=== PATIENT | female | born 1990 | race Caucasian/White ===

== ENCOUNTER 2018-12-11 13:44 | Emergency (ER) | payer MEDICAID ==
[~2018-12-11] VITALS: Ht 157.5 cm; Wt 44.5 kg
[~2018-12-11 13:44] MED LIST: NEOM10SO7 EACH EAR
[2018-12-11 13:49] VITALS: BP_SYST 114
[2018-12-11 14:50] VITALS: BP_SYST 123
== END 2018-12-11 14:50 | disposition home or self-care (01) ==
LOC: SED 13:44
DX: S05.01XA Injury of conjunctiva and corneal abrasion without foreign body, right eye, initial encounter (principal); R03.0 Elevated blood-pressure reading, without diagnosis of hypertension; X58.XXXA Exposure to other specified factors, initial encounter; Y93.89 Activity, other specified; Y92.89 Other specified places as the place of occurrence of the external cause; Y99.8 Other external cause status
CPT/HCPCS: 81025; 99283

== ENCOUNTER 2019-02-10 09:37 | Emergency (ER) | payer BC, MEDICAID ==
[~2019-02-10] VITALS: Ht 157.5 cm; Wt 41.7 kg
--- NOTE | 2019-02-10 09:37 | NUR ---
BROUGHT BACK TO BED #2 AND TRIAGED. REPORT GIVEN TO JUANITA
[2019-02-10 09:40] VITALS: BP_SYST 110
--- NOTE | 2019-02-10 09:40 | NUR ---
Patient presented to ER with abdominal cramping, headache, cough, congestion x2 days. Patient A&Ox4, afebrile, ambulatory to ER, skin pink, head ache pain 4/10, nausea, denies V/D at present time, nasal congestion, cough present. Patient 18 weeks .
--- NOTE | 2019-02-10 09:40 | NUR ---
Note undone in EDM - 02/10/19 at 1659 by LOUISAEDTD Patient given written and verbal discharge instructions and verbalizes understanding. ER discussed with patient the results and treatment provided. Patient in stable condition. ID arm band removed. IV catheter removed intact and dressing applied, no active bleeding. Rx of Azithromycin given. Patient educated on pain management and to follow up with PMD. Pain Scale 2/10 tolerable for patient. Opportunity for questions provided and answered. Medication side effect fact sheet provided.
--- NOTE | 2019-02-10 09:45 | NUR ---
DIEGO Abarca at bedside examining patient.
[2019-02-10] MEDS ORDERED: NACL 0.9% 1,000 ML IV ONE (10:15)
[2019-02-10] MEDS ORDERED: ACETAMINOPHEN 500 MG TABLET PO ONE (10:15)
[2019-02-10] MEDS ORDERED: ONDANSETRON HCL 4 MG/2 ML VIAL IVP ONE (10:15)
[2019-02-10] MEDS ORDERED: ONDANSETRON 4 MG ODT TAB PO ONE (10:45)
--- NOTE | 2019-02-10 11:20 | NUR ---
Janis MCGEE at bedside assessing heart tones.
[2019-02-10 11:40] VITALS: BP_SYST 110
--- NOTE | 2019-02-10 11:40 | NUR ---
Patient given written and verbal discharge instructions and verbalizes understanding. ER MD discussed with patient the results and treatment provided. Patient in stable condition. ID arm band removed. IV catheter removed intact and dressing applied, no active bleeding. Rx of Azithromycin given. Patient educated on pain management and to follow up with PMD. Pain Scale 2/10 tolerable for patient. Opportunity for questions provided and answered. Medication side effect fact sheet provided.
== END 2019-02-10 11:40 | disposition home or self-care (01) ==
LOC: SED 09:37
DX: O99.282 Endocrine, nutritional and metabolic diseases complicating pregnancy, second trimester (principal); E86.0 Dehydration; O99.512 Diseases of the respiratory system complicating pregnancy, second trimester; J06.9 Acute upper respiratory infection, unspecified; O21.8 Other vomiting complicating pregnancy; O26.892 Other specified pregnancy related conditions, second trimester; R51 Headache; Z3A.18 18 weeks gestation of pregnancy
CPT/HCPCS: 96360; 99283; J2405; J7030; Q0162; 99284

== ENCOUNTER 2019-05-01 13:55 | Observation (INO) | payer BC, MEDICAID | END 2019-05-01 15:00 | disposition home or self-care (01) | LOC: SPU 13:55 | PROVIDERS: ADMIT Specialist; ATTEND Specialist | DX: O62.9 Abnormality of forces of labor, unspecified (principal); Z3A.29 29 weeks gestation of pregnancy | CPT/HCPCS: 36415; 82731; G0378 ==

== ENCOUNTER 2020-01-31 21:44 | Emergency (ER) | payer BC, MEDICAID ==
[~2020-01-31] VITALS: Ht 157.5 cm; Wt 39.0 kg
[2020-01-31 21:55] VITALS: BP_SYST 90
--- NOTE | 2020-01-31 21:55 | NUR ---
Patient to ER bed 1 to gown for evaluation. Side rails up. Report given to COLE.
--- NOTE | 2020-01-31 21:56 | NUR ---
PT AAO AND AMBULATORY C/O PAIN WITH URINATION AND BLOOD IN URINE SINCE YESTERDAY. PT REPORTS WORSENING DISCOMFORT AND ATTEMPTED TO TAKE AZO TO ASSIST WITH SYMPTOMS.
--- NOTE | 2020-01-31 21:58 | NUR ---
ER at bedside examining patient.
[2020-01-31 22:18] LABS: BILIRUBIN,URINE 1+ (NEGATIVE); CLARITY/URINE CLOUDY (CLEAR); COLOR,URINE RED (YELLOW); GLUCOSE,URINE 1+ (NEGATIVE); KETONES,URINE TRACE (NEGATIVE); LEUKOCYTE ESTERASE ,URINE 2+ (NEGATIVE); NITRITE, URINE POSITIVE (NEGATIVE); PROTEIN URINE 3+ (NEGATIVE)
[2020-01-31 22:34] LABS: BLOOD, URINE TRACE (NEGATIVE)
[2020-01-31 22:35] LABS: UROBILINOGEN,URINE >=8 (0.2-1.0)
[2020-01-31 22:37] LABS: BACTERIA,URINE MODERATE /HPF (None Seen); WBC,URINE 50-80 /HPF (0-3)
--- NOTE | 2020-01-31 23:07 | NUR ---
Patient given written and verbal discharge instructions and verbalizes understanding. ER MD discussed with patient the results and treatment provided. Patient in stable condition. ID arm band removed. Rx of Bactrim given. Patient educated on pain management and to follow up with PMD. Opportunity for questions provided and answered. Medication side effect fact sheet provided.
[2020-01-31 23:13] VITALS: BP_SYST 90
[2020-01-31] MEDS ORDERED: SULFAMETHOXAZOLE/TRIMETHOPR DS 1 TABLET PO ONE (23:15)
[2020-01-31] MEDS ORDERED: IBUPROFEN 400 MG TABLET PO ONE (23:15)
[2020-01-31] MEDS ORDERED: SULFAMETHOXAZOLE/TRIMETHOPR DS 1 TABLET ONE (23:20)
[2020-01-31] MEDS ORDERED: IBUPROFEN 400 MG TABLET ONE (23:21)
== END 2020-01-31 23:07 | disposition home or self-care (01) ==
LOC: SED 21:44
DX: N39.0 Urinary tract infection, site not specified (principal)
CPT/HCPCS: 81000-TC; 81025; 87086; 87186-TC; 99283

== ENCOUNTER 2022-07-28 14:41 | Emergency (ER) | payer BC, MEDICAID ==
[~2022-07-28] VITALS: Ht 157.5 cm; Wt 40.4 kg
[2022-07-28 15:20] VITALS: BP_SYST 107
--- NOTE | 2022-07-28 15:25 | NUR ---
Patient triaged and placed in waiting room. VSS and patient appears in no acute distress at this time. Accompanied by , awaiting available bed, and MD notified of need for MSE.
--- NOTE | 2022-07-28 15:27 | NUR ---
ER in triage examining patient.
[2022-07-28 16:14] LABS: BILIRUBIN,URINE NEGATIVE (NEGATIVE); BLOOD, URINE TRACE (NEGATIVE); CLARITY/URINE CLEAR (CLEAR); COLOR,URINE YELLOW (YELLOW); GLUCOSE,URINE NEGATIVE (NEGATIVE); HCG,QUAL RESULT NEGATIVE (NEGATIVE); KETONES,URINE 1+ (NEGATIVE); LEUKOCYTE ESTERASE ,URINE NEGATIVE (NEGATIVE); NITRITE, URINE NEGATIVE (NEGATIVE); PROTEIN URINE NEGATIVE (NEGATIVE); UROBILINOGEN,URINE 0.2 (0.2-1.0)
[2022-07-28] MEDS ORDERED: ONDANSETRON 4 MG ODT TAB PO ONE (16:15)
[2022-07-28 16:39] LABS: BACTERIA,URINE FEW /HPF (None Seen); WBC,URINE 0-3 /HPF (0-3)
[2022-07-28 17:11] LABS: BASOPHILS % (AUTO) 0.6 % (0.0-2.0); EOSINOPHILS % (AUTO) 0.4 % (0.0-4.0); HEMATOCRIT 40.9 % (36-48); HEMOGLOBIN 13.5 g/dL (12.0-16.0); LYMPHOCYTES # (AUTO) 0.7 K/uL (1.0-5.5); LYMPHOCYTES % (AUTO) 12.1 % (20.5-51.5); MEAN CORPUSCULAR HEMOGLOBIN 29 pg (27-31); MEAN CORPUSCULAR HGB CONC 33 % (32-36); MEAN CORPUSCULAR VOLUME 87 fL (79.0-98.0); MONOCYTES # (AUTO) 0.5 K/uL (0.0-1.0); MONOCYTES % (AUTO) 8.8 % (1.7-9.3); NEUTROPHILS # (AUTO) 4.3 K/uL (1.8-7.7); NEUTROPHILS % (AUTO) 78.1 % (40.0-70.0); PLATELET COUNT (AUTO) 212 K/uL (130-430); RED CELL DISTRIBUTION WIDTH 14.6 % (9.0-15.0); WHITE BLOOD COUNT (AUTO) 5.5 K/uL (4.8-10.8)
[2022-07-28 17:28] LABS: CALCIUM 8.5 mg/dL (8.4-11.0); CREATININE 0.81 mg/dL (0.55-1.30); TOTAL BILIRUBIN 0.6 mg/dL (0.0-1.0)
--- NOTE | 2022-07-28 17:55 | NUR ---
MEDICATED IN TRIAGE ROOM
--- NOTE | 2022-07-28 19:04 | NUR ---
Patient to ER [address] 2 for evaluation.
--- NOTE | 2022-07-28 19:21 | NUR ---
dr. kate speaking to patient regarding results
[2022-07-28] MEDS ORDERED: IBUPROFEN 600 MG TABLET PO ONE (19:30)
[2022-07-28] MEDS ORDERED: ONDA-8 TL (20:55)
[2022-07-28] MEDS ORDERED: IBUP-1971 PO (20:55)
[2022-07-28 21:00] VITALS: BP_SYST 110
--- NOTE | 2022-07-28 21:01 | NUR ---
Patient given written and verbal discharge instructions and verbalizes understanding. ER MD discussed with patient the results and treatment provided. Patient in stable condition. ID arm band removed. Rx of IBUPROFEN AND ONDANSETRON given. Patient educated on pain management and to follow up with PMD. Pain Scale 2/10. Opportunity for questions provided and answered. Medication side effect fact sheet provided.
== END 2022-07-28 21:00 | disposition home or self-care (01) ==
LOC: SED 14:41
DX: N39.0 Urinary tract infection, site not specified (principal); B34.9 Viral infection, unspecified; R07.9 Chest pain, unspecified; R10.2 Pelvic and perineal pain; Z79.899 Other long term (current) drug therapy
CPT/HCPCS: 99284; 76830; 76857; 80053; 81000; 84703; 83690; 85025; 36415; Q0162

== ENCOUNTER 2023-12-18 20:31 | Emergency (ER) | payer BC, OTHER ==
[~2023-12-18] VITALS: Ht 157.5 cm; Wt 46.3 kg
[~2023-12-18 20:31] MED LIST changes: +IBUP-1971 PO; +ONDA-8 TL
[2023-12-18 20:35] VITALS: BP_SYST 126; PULSE 100; RESP 18; TEMP 97.8; O2SAT 100
[2023-12-18 21:12] LABS: LYMPHOCYTES # (AUTO) 0.6 K/uL (1.0-5.5); MONOCYTES # (AUTO) 0.4 K/uL (0.0-1.0)
[2023-12-18 21:16] LABS: BASOPHILS % (AUTO) 0.6 % (0.0-2.0); EOSINOPHILS % (AUTO) 1.1 % (0.0-4.0); HEMATOCRIT 38.4 % (36-48); HEMOGLOBIN 13.3 g/dL (12.0-16.0); LYMPHOCYTES % (AUTO) 16.3 % (20.5-51.5); MEAN CORPUSCULAR HEMOGLOBIN 32 pg (27-31); MEAN CORPUSCULAR HGB CONC 35 % (32-36); MEAN CORPUSCULAR VOLUME 92 fL (79.0-98.0); MONOCYTES % (AUTO) 8.9 % (1.7-9.3); NEUTROPHILS # (AUTO) 2.9 K/uL (1.8-7.7); NEUTROPHILS % (AUTO) 73.1 % (40.0-70.0); PLATELET COUNT (AUTO) 146 K/uL (130-430); RED BLOOD CELL COUNT(AUTO) 4.19 MIL/uL (4.2-6.2); RED CELL DISTRIBUTION WIDTH 12.5 % (9.0-15.0)
[2023-12-18 21:28] LABS: ANION GAP 9 (5-15); CALCIUM 8.8 mg/dL (8.4-11.0); CARBON DIOXIDE 26 mmol/L (23-29); CHLORIDE 105 mmol/L (98-107); CREATININE 0.84 mg/dL (0.55-1.30); GFR AFRICAN AMERICAN 101 mL/min (>90); GLUCOSE 92 mg/dL (74-106); POTASSIUM 3.8 mmol/L (3.5-5.1); SODIUM SERUM 140 mmol/L (136-145); UREA NITROGEN, BLOOD 11 mg/dL (8-21)
[2023-12-18 21:32] LABS: GFR NON AFRICAN-AMERICAN 84 mL/min (>90)
[2023-12-18] MEDS ORDERED: AUG875 PO (22:50)
[2023-12-18 22:59] VITALS: BP_SYST 111; PULSE 99; RESP 20; TEMP 99.5; O2SAT 100
== END 2023-12-18 22:59 | disposition home or self-care (01) ==
LOC: SED 20:31
DX: J20.9 Acute bronchitis, unspecified (principal); R07.89 Other chest pain; R05.9 Cough, unspecified; Z79.899 Other long term (current) drug therapy; Z79.2 Long term (current) use of antibiotics
CPT/HCPCS: 36415; 71045; 80048; 84484; 85025; 93005; 99285